=== PATIENT | male | born 1930 | race African-American/Black ===

== ENCOUNTER 2020-11-12 19:32 | Inpatient (IN) | payer OTHER ==
[~2020-11-12] VITALS: Ht 185.4 cm; Wt 64.0 kg
[2020-11-12 20:57] LABS: HEMATOCRIT. 28.4 % (42.0-52.0); HEMOGLOBIN. 9.8 g/dL (14.0-18.0); MEAN CORPUSCULAR HEMOGLOBIN 30.9 pg (28.0-32.0); MEAN CORPUSCULAR VOLUME 89.4 fL (80.0-94.0); MEAN PLATELET VOLUME 9.6 fl (7.4-10.4); PLATELET 128 x1000/uL (130-400); RED BLOOD CELL COUNT 3.18 mill/uL (4.7-6.1); RED CELL DISTRIBUTION WIDTH 14.6 % (11.6-14.6)
[2020-11-12 21:03] LABS: CHLORIDE 110 mEq/L (98-107)
[2020-11-12 21:07] LABS: ETHANOL BLOOD < 10 mg/dL
[2020-11-12 21:45] LABS: PLATELET ESTIMATE SLIGHTLY DECREASED
[2020-11-12] MEDS ORDERED: SODIUM CHLORIDE 0.9% 1,000 ML IV NR (23:45)
[2020-11-13] VITALS (12 sets, daily range): BP systolic 119–203; BP diastolic 58–122
[2020-11-13 01:39] LABS: CLARITY URINE CLEAR (CLEAR); COLOR URINE YELLOW (YELLOW); KETONES URINE NEGATIVE (NEGATIVE); LEUKOCYTE ESTERASE URINE NEGATIVE (NEGATIVE); NITRITE URINE NEGATIVE (NEGATIVE); OCCULT BLOOD URINE TRACE (NEGATIVE); PROTEIN URINE 1+ (NEGATIVE); UROBILINOGEN URINE 0.2 E.U./dL (0.2-1.0)
[2020-11-13 02:04] LABS: *AMPHETAMINES SCREEN URINE NEGATIVE (NEGATIVE); *BARBITURATES SCREEN URINE NEGATIVE (NEGATIVE); *BENZODIAZEPINES SCREEN URINE NEGATIVE (NEGATIVE)
[2020-11-13 02:05] LABS: *COCAINE SCREEN URINE NEGATIVE (NEGATIVE); CANNABINOID URINE SCREEN NEGATIVE (NEGATIVE); METHADONE URINE SCREEN NEGATIVE (NEGATIVE); OPIATES URINE SCREEN NEGATIVE (NEGATIVE); PHENCYCLIDINE URINE SCREEN NEGATIVE (NEGATIVE)
[2020-11-13] MEDS ORDERED: ENALAPRIL 1.25MG/ML VIAL 1ML IV NR (02:30)
[2020-11-13] MEDS ORDERED: ONDANSETRON HCL 4MG/2ML INJ IV PRN (07:15)
[2020-11-13] MEDS ORDERED: CLONIDINE 0.1MG TABLET PO PRN (07:15)
[2020-11-13] MEDS ORDERED: DIPHENHYDRAMINE 50MG/ML VIAL IV PRN (07:15)
[2020-11-13] MEDS ORDERED: MORPHINE SULFATE 2 MG/ML CPJ (NOT FOR IM USE) IV PRN (07:15)
[2020-11-13] MEDS ORDERED: ACETAMINOPHEN 325MG TABLET PO PRN (07:15)
[2020-11-13] MEDS ORDERED: HYDRALAZINE 20MG/ML VIAL IV PRN (07:15)
[2020-11-13] MEDS ORDERED: IPRATROPIUM/ALBUTEROL 0.5-3(2.5)MG/3ML NEB HHN PRN (07:15)
[2020-11-13] MEDS ORDERED: METOPROLOL TARTRATE 25MG TABLET PO SCH (09:00)
[2020-11-13] MEDS: ASPIRIN 81MG TABLET PO SCH (09:26)
[2020-11-13 09:35] LABS: BG BASE EXCESS -3.7 mmol/L (-2.0-2.0); BG CARBOXYHEMOGLOBIN 0.3 % (0.5-1.5); BG DEOXYHEMOGLOBIN 2.9 % (0.0-5.0); BG FRACTION INSPIRED OXYGEN 21; BG HCO3 ACT 20.6 mmol/L (22.0-26.0); BG METHEMOGLOBIN 0.3 % (0.0-1.5); BG OXYGEN SATURATION 97.1 % (92.0-98.5); BG OXYHEMOGLOBIN 96.5 % (94.0-97.0); BG PCO2 34.3 mmHg (35.0-45.0); BG PH 7.396 (7.350-7.450); BG PO2 98.6 mmHg (75.0-100.0); BG SAMPLE SITE RIGHT RADIAL; BG TOTAL HEMOGLOBIN 10.2 g/dL (12.0-18.0); BG VENT MODE ROOM AIR
[2020-11-13] MEDS ORDERED: AMLO5TAB88 PO (10:06)
[2020-11-13] MEDS ORDERED: BRIM.2 (10:06)
[2020-11-13] MEDS ORDERED: HYDR-4134 PO (10:06)
[2020-11-13] MEDS ORDERED: LATA2.5D14 (10:06)
[2020-11-13] MEDS ORDERED: FINA5TAB11 PO (10:06)
[2020-11-13] MEDS ORDERED: TIMO15DR12 (10:06)
[2020-11-13] MEDS ORDERED: CIPR500T5 PO (10:06)
[2020-11-13] MEDS ORDERED: FURO20TA4 PO (10:06)
[2020-11-13] MEDS ORDERED: TERA2CAP4 PO (10:06)
[2020-11-13] MEDS ORDERED: ATOR20TA65 PO (10:06)
[2020-11-13] MEDS ORDERED: ENOXAPARIN 30MG/0.3ML SYR SUBCUT SCH (11:00)
[2020-11-13] MEDS ORDERED: AMLODIPINE 5MG TABLET PO SCH (11:45)
[2020-11-13] MEDS ORDERED: ENOXAPARIN 60MG/0.6ML SYR SUBCUT SCH (12:00)
[2020-11-13] MEDS: ISOSORBIDE MONONITRATE 30MG TABLET SR 24HR PO SCH (14:28)
[2020-11-13] MEDS: FUROSEMIDE 40MG/4ML VIAL IVP SCH (14:28)
[2020-11-13] MEDS: ATORVASTATIN CALCIUM 20MG TABLET PO SCH (20:29)
[2020-11-14] VITALS (14 sets, daily range): BP systolic 114–188; BP diastolic 53–122
[2020-11-14 07:33] LABS: HEMATOCRIT. 28.2 % (42.0-52.0); HEMOGLOBIN. 9.4 g/dL (14.0-18.0); LYMPHOCYTES % 11.6 % (20.0-50.0); MEAN CORPUSCULAR HEMOGLOBIN 30.3 pg (28.0-32.0); MEAN CORPUSCULAR VOLUME 90.3 fL (80.0-94.0); MEAN PLATELET VOLUME 10.1 fl (7.4-10.4); MONOCYTES % 8.1 % (2.0-8.0); NEUTROPHILS % 78.3 % (40.0-76.0); PLATELET 128 x1000/uL (130-400); RED BLOOD CELL COUNT 3.12 mill/uL (4.7-6.1); RED CELL DISTRIBUTION WIDTH 14.7 % (11.6-14.6)
[2020-11-14 07:37] LABS: CHLORIDE 111 mEq/L (98-107)
[2020-11-14 07:43] LABS: INR 1.1; PROTHROMBIN TIME 11.6 sec (9.6-11.0)
[2020-11-14 07:44] LABS: PHOSPHORUS 3.1 mg/dL (2.5-4.9)
[2020-11-14 07:45] LABS: LDL CHOLESTEROL 48 mg/dL (5-100)
[2020-11-14 07:46] LABS: CREATINE KINASE 391 IU/L (39-308)
[2020-11-14 07:47] LABS: HDL CHOLESTEROL 90 mg/dL (40-59)
[2020-11-14] MEDS: FUROSEMIDE 40MG/4ML VIAL IVP SCH (08:40)
[2020-11-14] MEDS: ASPIRIN 81MG TABLET PO SCH (08:40)
[2020-11-14] MEDS: ISOSORBIDE MONONITRATE 30MG TABLET SR 24HR PO SCH (08:53)
[2020-11-14] MEDS ORDERED: AMLODIPINE 10MG TABLET PO SCH (09:00)
[2020-11-14] MEDS ORDERED: ENOXAPARIN 30MG/0.3ML SYR SUBCUT SCH (09:00)
[2020-11-14] MEDS: HYDRALAZINE HCL 25MG TABLET PO SCH ×3 (09:14→21:30)
[2020-11-14] MEDS ORDERED: TAMSULOSIN HCL 0.4MG SR CAPSULE PO SCH (10:45)
[2020-11-14] MEDS: ATORVASTATIN CALCIUM 20MG TABLET PO SCH (21:30)
[2020-11-15 08:10] LABS: IMMUNOGLOBULIN A 236 mg/dL (61-437); IMMUNOGLOBULIN G 1140 mg/dL (603-1613); IMMUNOGLOBULIN M 92 mg/dL (15-143)
[2020-11-15] MEDS ORDERED: FUROSEMIDE 20MG TABLET PO SCH (09:00)
== END 2020-11-14 23:38 | disposition short-term general hospital (02) | DRG 280 ==
LOC: ER 19:32 → 3WST 11-13 02:34 → EDBEDREQSVC 11-13 02:43 → EDBEDREQ 11-13 02:43 → EDBEDREQTM 11-13 02:43 → ENRESERV 11-13 05:29
PROVIDERS: ADMIT Internal Medicine; ATTEND Internal Medicine
DX: I21.4 Non-ST elevation (NSTEMI) myocardial infarction (principal); I50.33 Acute on chronic diastolic (congestive) heart failure; N17.9 Acute kidney failure, unspecified; G93.40 Encephalopathy, unspecified; E87.2 Acidosis; I13.0 Hypertensive heart and chronic kidney disease with heart failure and stage 1 through stage 4 chronic kidney disease, or unspecified chronic kidney disease; I48.0 Paroxysmal atrial fibrillation; N40.0 Benign prostatic hyperplasia without lower urinary tract symptoms; D64.9 Anemia, unspecified; R00.1 Bradycardia, unspecified; N18.9 Chronic kidney disease, unspecified; D69.6 Thrombocytopenia, unspecified; I16.0 Hypertensive urgency; E83.52 Hypercalcemia; G40.909 Epilepsy, unspecified, not intractable, without status epilepticus; Z20.822 Contact with and (suspected) exposure to COVID-19; Z82.49 Family history of ischemic heart disease and other diseases of the circulatory system; Z86.73 Personal history of transient ischemic attack (TIA), and cerebral infarction without residual deficits
CPT/HCPCS: 36415; 36600; 71045; 76770; 80048; 80053; 80061; 80305; 80320; 81003; 82140; 82330; 82375; 82550; 82784; 82805; 83605; 83735; 83880; 83970; 84100; 84443; 84484; 85025; 86334; 86850; 86900; 87426; 93005; 93306; 93970; 99291; J0360; J1650; J1940; J3490; G0480